=== PATIENT | male | born 1960 | race Caucasian/White ===

== ENCOUNTER 2017-08-16 06:20 | Day surgery (SDC) | payer OTHER ==
[2017-08-12 07:52] VITALS: BMI 27.8
[2017-08-12 11:19] LABS: #Eosinphils 0.3 thou/uL (0.0-0.7); #Lymphocytes 2.5 thou/uL (1.20-3.40); #Monocytes 0.7 thou/uL (0.11-0.59); %Basophils 0.2 % (0.0-1.0); %Lymphocytes 38.2 % (21.0-51.0); %Monocytes 11.1 % (0.0-10.0); %Neutrophils 46.5 % (42.0-75.0); Hemoglobin 16.1 g/dL (14.0-18.0); Mean Corpuscular Hemoglobin 31.4 pg (27.0-31.0); Mean Corpuscular Volume 92.3 fl (80.0-94.0); Mean Platelet Volume 8.2 fL (7.4-10.4); Platelet Count 221 thou/uL (130-400); RBC Distribution Width 12.4 % (11.5-14.5); Red Blood Cell (RBC) Count 5.12 mill/uL (4.70-6.10); White Blood Cell (WBC) Count 6.5 thou/uL (4.8-10.8)
[2017-08-12 11:26] LABS: PTT 29.8 SEC (22.9-36.1); Prothrombin Time 13.3 SEC (12.0-14.7)
[2017-08-12 12:16] LABS: ALT (SGPT) 28 U/L (8-55); AST (SGOT) 26 U/L (5-34); Albumin 4.6 g/dL (3.5-5.0); Alkaline Phosphatase 49 U/L (40-150); Anion Gap 16 mmol/L (10-20); BUN (Urea Nitrogen) 20 mg/dL (8.4-25.7); Bilirubin, Total 0.3 mg/dL (0.2-1.2); Calc. Creatinine Clearance 105 mL/min (70-130); Calcium 10.1 mg/dL (7.8-10.44); Carbon Dioxide 24 mmol/L (22-29); Chloride 106 mmol/L (98-107); Estimated GFR-MDRD 76; Glucose 103 mg/dL (70-105); Protein, Total 7.6 g/dL (6.0-8.3); Sodium 142 mmol/L (136-145)
[2017-08-16] MEDS ORDERED: Verapamil 5 MG/2 ML VIAL ONE (06:31)
[2017-08-16] MEDS ORDERED: Heparin 10,000 UNITS/1 ML VIAL ONE (06:31)
[2017-08-16] MEDS ORDERED: Nitroglycerin 100MG/250ML BOT 250 ML ONE (06:32)
[2017-08-16] MEDS ORDERED: Lidocaine 1% (PF) 30 ML VIAL ONE (06:35)
[2017-08-16] MEDS ORDERED: Midazolam HCl 2 mg/2 ml Vial ONE (07:07)
[2017-08-16] MEDS ORDERED: Fentanyl 100 MCG/2 ML VIAL ONE (07:07)
[2017-08-16] MEDS ORDERED: Iopamidol 370 76% 100 ML VIAL ONE (09:53)
== END 2017-08-16 10:53 | disposition home or self-care (01) ==
LOC: EEVIPCON → CCL 06:20
PROVIDERS: ATTEND Specialist
DX: R94.30 Abnormal result of cardiovascular function study, unspecified (principal); I10 Essential (primary) hypertension; Z79.899 Other long term (current) drug therapy
CPT/HCPCS: 80053; 85025; 85610; 85730; 93458; 93571; 99152; 99153; C1769; J0153; J1644; J2001; J2250; J3010